=== PATIENT | female | born 1985 | race Caucasian/White ===

== ENCOUNTER 2021-07-23 09:08 | Outpatient (REF) | payer OTHER, SELFPAY ==
[2021-07-23 11:23] LABS: Imm Gran Abs Auto 0.02 X10*3/uL (0.00-0.03); Imm Gran Pct Auto 0.4 % (0.0-0.4); Mean Corpuscular Volume 84.5 fL (80.0-98.0); PLT CLUMP 1; Red Blood Count 4.38 X10*6/uL (4.20-5.50); Red Cell Distribution Width 12.7 % (11.0-16.0); SCAN SMEAR FLAG 1
[2021-07-23 11:25] LABS: Basophils Percent Auto 0.6 % (0-2); Eosinophils Absolute Auto 0.2 X10*3/uL (0.0-0.4); Eosinophils Percent Auto 3.4 % (0-4); Hemoglobin 12.4 g/dl (12.0-16.0); Lymphocytes Absolute Auto 1.2 X10*3/uL (1.2-4.9); Lymphocytes Percent Auto 23.3 % (20-40); Mean Corpuscular HGB Conc 33.5 g/dl (31.0-35.0); Mean Corpuscular Hemoglobin 28.3 pg (27.0-33.0); Monocytes Absolute Auto 0.4 X10*3/uL (0.1-1.2); Monocytes Percent Auto 7.7 % (2-11); Neutrophils Absolute Auto 3.3 x10*3/uL (2.0-8.3); Neutrophils Percent Auto 64.6 % (45-73)
[2021-07-23 11:26] LABS: MANUAL DIFF FLAG NO; Platelet Count 134 X10*3/uL (160-400); White Blood Count 5.1 X10*3/uL (4.8-10.8)
[2021-07-23 11:48] LABS: Alanine Aminotransferase 23 U/L (0-31); Alkaline Phosphatase 81 U/L (39-117); Anion Gap 12 (12-20); Aspartate Amino Transferase 19 U/L (5-31); Bilirubin Total 0.9 mg/dL (0.0-1.0); Blood Urea Nitrogen 16 mg/dL (9-16); Calcium 8.8 mg/dL (8.4-10.2); Carbon Dioxide 25 mmol/L (22-29); Chloride 106 mmol/L (96-108); Cholesterol 150 mg/dL; Estimated Glomerular Filt Rate > 60; Glucose Fasting 94 mg/dL (60-99); HDL Cholesterol 35 mg/dL; LDL Cholesterol Calculated 95 mg/dl; Potassium 4.2 mmol/L (3.3-5.1); Sodium 139 mmol/L (135-145); Total Protein 6.8 g/dL (6.5-8.0); Triglycerides 101 mg/dL
[2021-07-23 11:54] LABS: TSH reflex Free T4 1.71 uIU/mL (0.32-4.0)
[2021-07-23 11:56] LABS: HBS Num1 14.23 mIU/mL (0-7.99); HBc Num1 0.07 S/CO (0.00-0.79); HBsAGNum1 0.29 S/CO (0.00-0.99); HIV AB/AG Nonreactive (Nonreactive); HIV Num 1 0.08 S/CO (0.00-0.99); Hepatitis B Core Antibody Nonreactive (Nonreactive); Hepatitis B Surface Antigen Negative (Negative); ~HepC Num1 0.09 S/CO (0.00-0.79); ~Hepatitis B Surface Antibody REACTIVE (Nonreactive); ~Hepatitis C Antibody Nonreactive (Nonreactive)
[2021-07-23 12:11] LABS: Creatinine Urine 126.98 mg/dL; Microalbum/Creatinine Ratio Ur 14.9 ug/mg cr
[2021-07-24 07:47] LABS: Syphilis Screen Nonreactive (Nonreactive)
== END 2021-07-23 09:09 | disposition home or self-care (01) ==
LOC: HO.WFDLDS 09:08
PROVIDERS: Visit Provider Family Medicine
DX: Z00.00 Encounter for general adult medical examination without abnormal findings (principal); Z11.4 Encounter for screening for human immunodeficiency virus [HIV]; Z11.3 Encounter for screening for infections with a predominantly sexual mode of transmission; Z87.59 Personal history of other complications of pregnancy, childbirth and the puerperium
CPT/HCPCS: 36415; 80053; 80061; 82043; 84443; 85025; 86704; 86706; 86780; 86803; 87340; 87389

== ENCOUNTER 2022-11-29 16:03 | Outpatient (AMB) | payer OTHER, SELFPAY ==
--- NOTE | 2022-11-29 16:07 | A.OFFPC_ITS ---
Vital Signs 11/29/22 16:08 Height 5 ft 3 in Weight 218 lb 4 oz BMI 38.7 BP 118/64 Blood Pressure Location Lt brachial Position Sitting Pulse 74 Pulse Source Pulse Oximeter Pulse Oximetry (%) 99 Oxygen Delivery Method Room Air Intake Visit Reasons: Physical Exam Intake Note: Patient is here for her physical today. Allergies No Known Allergies Allergy (Verified 11/29/22 16:10) Tobacco use date assessed: 11/29/22 HPI Physical Exam HPI Details Patient?presents?for?complete?physical?exam. No?recent?labs. No?new?complaints.??Patient?feels?well.??Working?on?a?healthy?diet ?and?gets?exercise?rowing?and?lifting?weights. 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 Leonard Vazquez, Aaliyah Lopez, Stefan aquino nd colleagues, with an educational cori from [employer]. Review of Systems Const Denies chills, Denies fatigue, Denies fever(s), Denies headache(s) and Denies weakness Eyes Denies change in vision ENT Denies dizziness, Denies headache(s), Denies hearing loss, Denies nasal congestion, Denies sinus pain, Denies sinus pressure and Denies sore throat Card Denies chest pain, Denies lightheadedness, Denies dyspnea and Denies other (palpitations) Resp Denies cough, Denies dyspnea and Denies wheezing GI Denies abdominal pain, Denies melena, Denies hematochezia, Denies change in bowel habits, Denies dyspepsia and Denies nausea Denies hematuria and Denies dysuria Musc Denies abnormal gait, Denies myalgias, Denies arthralgias, Denies numbness and Denies tingling Skin/Breast Denies rash, Denies unusual bruising and Denies wounds Neuro Denies abnormal gait, Denies dizziness, Denies headache(s), Denies memory loss, Denies numbness, Denies Sensory deficit (Neuro), Denies tingling and Denies weakness Psych Denies anxiety, Denies depression and Denies memory loss Endo Denies cold intolerance, Denies fatigue, Denies heat intolerance, Denies polydipsia and Denies polyuria [place]/Lymph Denies easy bleeding and Denies easy bruising Aller/Immun Denies wheezing Physical exam (Primary Care) Vital Signs: Last Vital Signs Pulse 74 11/29/22 16:08 BP 118/64 11/29/22 16:08 Pulse Ox 99 11/29/22 16:08 Oxygen Delivery Method Room Air 11/29/22 16:08 BMI result Body Mass Index 38.7 Tobacco/Smoking Status: Tobacco use Status Tobacco use date assessed 11/29/22 11/29/22 16:15 Patient Tobacco Use Status Never used Tobacco 11/29/22 16:15 e-Cigarette/Vaping Use Never Used 11/29/22 16:15 Const General: no acute distress, well developed, alert and awake Nutritional Appearance: well nourished Orientation/consciousness: patient oriented x3 HENMT Head: Yes normocephalic and Yes atraumatic Ears: hearing grossly normal bilaterally and TM's normal bilaterally General nose exam: Normal external nose present and Normal nares present Mouth: Normal oral and palatal mucosa present and moist mucous membranes Teeth and gingiva: dentition normal Throat: Yes posterior oropharynx normal Eyes Pupils: Equal, round and reactive pupils present and Pupil accommodation reflex normal EOM: EOMs intact bilaterally Neck Neck: Yes normal visual inspection, Yes no lymphadenopathy and Yes trachea midline Thyroid: Thyroid normal Carotids: no bruits Lymphatic: no lymphadenopathy noted Chest Chest palpation & inspection: normal inspection of the chest Resp Effort & Inspection: normal respiratory effort Auscultation: clear to auscultation bilaterally Cardio Rate: regular rate Rhythm: regular rhythm Heart sounds: S1 normal heart sound present, S2 normal heart sound present, no gallops, no murmurs and no rubs Bruits: no abdominal aortic bruits and no carotid bruits GI Palpation (GI): No Abdominal aortic bruit present, Soft to palpation, nontender, No hepatosplenomegaly present and No Rebound tenderness present Auscultation: normal bowel sounds General: Yes no CVA tenderness Back/Spine/Pelvis Back: no CVA tenderness Cervical Spine: cervical ROM normal and No Cervical spine tenderness Thoracic/Lumbar Spine: thoraco-lumbar ROM normal, No pain with thoraco-lumbar ROM, No thoracic spinal tenderness and No lumbar spinal tenderness Skin Lesions: no lesions Rashes: no rashes Trauma: no lacerations or abrasions Wounds: no wounds Nails: normal Neuro General: patient oriented x3, gait normal and CN's II-XI intact bilaterally Cranial nerves: Yes Equal, round and reactive pupils present Cognition (Neuro): normal cognition Gait exam (Neuro): Normal gait present Motor exam (neuro): 5/5 motor strength present throughout Sensory Exam: No Sensory deficit (Neuro) Deep tendon reflexes (DTR's): Right patellar reflex intensity grade: 2+ and Left patellar reflex intensity grade: 2+ Extrem General: Yes normal to inspection and No edema Psych Appearance: grossly normal Affect: normal affect Attitude: cooperative Thought process: Normal thought process present Assessment and Plan Assessment & Plan (1) Adult general medical exam: Code(s): Z.00 - Encounter for general adult medical examination without abnormal findings Plan: 37-year-old?female?presents?for?complete?physical?exam Encouraged?ongoing?healthy?diet?with?active?lifestyle?and?plenty?of?exercise Exam?was ?within?normal?limits?except?elevated?BMI.??Continue?healthy?diet?and?exercise. Orders: Orders Lipid Panel Today Z00.00 - Encounter for general adult medical examination without abnormal findings UA and rflx microscopic Today Z00.00 - Encounter for general adult medical examination without abnormal findings Comprehensive [place]. Panel Fast Today Z00.00 - Encounter for general adult medical examination without abnormal findings Complete Blood Count Auto Diff Today Z00.00 - Encounter for general adult medical examination without abnormal findings Microalbumin, Random (w Creat) Today I10 - Essential (primary) hypertension TSH reflex Free T4 Today Z00.00 - Encounter for general adult medical examination without abnormal findings Coding Level of Care Code New Pt Prev Care 18-39yr(32573 Diagnoses Adult general medical exam Z00.00
[2022-11-29 16:08] VITALS: BP 118/64; PULSE 74; O2SAT 99; BMI 38.7
== END 2022-11-29 17:11 | disposition home or self-care (01) ==
PROVIDERS: PCP Family Medicine; Visit Provider Family Medicine
DX: Z00.00 Encounter for general adult medical examination without abnormal findings (principal)
CPT/HCPCS: 99385

== ENCOUNTER 2022-12-09 07:15 | Outpatient (REF) | payer OTHER, SELFPAY ==
[2022-12-09 11:39] LABS: MANUAL DIFF FLAG NO
[2022-12-09 11:50] LABS: Basophils Percent Auto 0.6 % (0-2); Eosinophils Absolute Auto 0.1 X10*3/uL (0.0-0.4); Eosinophils Percent Auto 2.2 % (0-4); Hematocrit 38.1 % (37.0-47.0); Hemoglobin 13.2 g/dl (12.0-16.0); Imm Gran Abs Auto 0.01 X10*3/uL (0.00-0.03); Imm Gran Pct Auto 0.2 % (0.0-0.4); Lymphocytes Absolute Auto 1.2 X10*3/uL (1.2-4.9); Lymphocytes Percent Auto 26.7 % (20-40); Mean Corpuscular HGB Conc 34.6 g/dl (31.0-35.0); Mean Corpuscular Hemoglobin 29.1 pg (27.0-33.0); Mean Corpuscular Volume 84.1 fL (80.0-98.0); Monocytes Absolute Auto 0.4 X10*3/uL (0.1-1.2); Monocytes Percent Auto 7.5 % (2-11); Neutrophils Absolute Auto 2.9 x10*3/uL (2.0-8.3); Neutrophils Percent Auto 62.8 % (45-73); Platelet Count 137 X10*3/uL (160-400); Red Blood Count 4.53 X10*6/uL (4.20-5.50); White Blood Count 4.6 X10*3/uL (4.8-10.8)
[2022-12-09 11:51] LABS: Appearance Urine Cloudy; Color Urine Yellow; Glucose Urine UA Negative (Negative); Leukocyte Esterase Urine Negative (Negative); Nitrite Urine Negative (Negative); Urine Blood Negative (Negative); Urine Ketones Negative (Negative); Urine Protein Negative (Neg-Trace)
[2022-12-09 12:03] LABS: Estimated Average Glucose 97 mg/dL
[2022-12-09 12:14] LABS: Alanine Aminotransferase 22 U/L (0-31); Alkaline Phosphatase 58 U/L (39-117); Anion Gap 12 (12-20); Aspartate Amino Transferase 22 U/L (5-31); Bilirubin Total 0.6 mg/dL (0.0-1.0); Blood Urea Nitrogen 15 mg/dL (9-16); Calcium 8.9 mg/dL (8.4-10.2); Carbon Dioxide 24 mmol/L (22-29); Chloride 105 mmol/L (96-108); Cholesterol 159 mg/dL (<200); Estimated Glomerular Filt Rate > 60; Glucose Fasting 110 mg/dL (60-99); HDL Cholesterol 39 mg/dL (>40); LDL Cholesterol Calculated 90 mg/dL (<100); Potassium 4.1 mmol/L (3.3-5.1); Sodium 137 mmol/L (135-145); Total Protein 6.6 g/dL (6.5-8.0); Triglycerides 153 mg/dL (<150)
[2022-12-09 12:34] LABS: TSH reflex Free T4 1.69 uIU/mL (0.32-4.0); Vitamin D 25-OH Total 39.7 ng/mL (>30)
[2022-12-09 13:21] LABS: Creatinine Urine 183.45 mg/dL; Microalbum/Creatinine Ratio Ur 19.6 ug/mg cr (<30)
== END 2022-12-09 07:16 | disposition home or self-care (01) ==
LOC: HO.WFDLDS 07:15
PROVIDERS: Visit Provider Family Medicine
DX: Z00.00 Encounter for general adult medical examination without abnormal findings (principal); E55.9 Vitamin D deficiency, unspecified; I10 Essential (primary) hypertension; R73.01 Impaired fasting glucose; Z86.32 Personal history of gestational diabetes
CPT/HCPCS: 36415; 80053; 80061; 81003; 82043; 82306; 82570; 83036; 84443; 85025

== ENCOUNTER 2022-12-23 15:16 | Outpatient (AMB) | payer OTHER, SELFPAY ==
--- NOTE | 2022-12-23 15:12 | A.OFFPC_ITS ---
Intake Visit Reasons: Follow-up?CPE-labs Intake Note: Patient is calling to follow up on CPE, labs today. Allergies No Known Allergies Allergy (Verified 11/29/22 16:10) Tobacco use date assessed: 12/23/22 HPI Follow-up?CPE-labs HPI Details 37 y/o female presents to f/u CPE-labs v ia telemedicine. Labs were drawn 12/09/22. Reviewed labs with pt. Plt count low at 137 x10*3/uL. Has been low before. Elevated fasting glucose of 110 and A1c 5.0%. Triglycerides 153. TC 159. LDL 90. HDL low at 39. 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 Leonard Vazquez, Aaliyah Lopez, Stefan Hernandez and colleagues, with an educational cori from [employer]. Review of Systems Const Denies chills, Denies fatigue, Denies fever(s), Denies headache(s) and Denies weakness ENT Denies dizziness and Denies headache(s) Card Denies dyspnea Resp Denies cough, Denies dyspnea, Denies wheezing and Denies other (shortness of breath) Musc Denies numbness and Denies tingling Neuro Denies dizziness, Denies headache(s), Denies numbness, Denies tingling and Denies weakness Psych Denies anxiety and Denies depression Endo Denies fatigue Aller/Immun Denies wheezing Physical exam (Primary Care) Tobacco/Smoking Status: Tobacco use Status Tobacco use date assessed 12/23/22 12/23/22 15:15 Patient Tobacco Use Status Never used Tobacco 12/23/22 15:15 e-Cigarette/Vaping Use Never Used 12/23/22 15:15 Telehealth Telehealth Location of provider rendering services: practice address Location of patient: address on file Patient Identification confirmed using: Name, : Yes Telehealth method: voice only Patient verbally consented to treatment: Yes Patient verbally consented to billing insurance company: Yes Patient informed of any privacy concerns related to visit: Yes Minutes spent on Phone/Video with Pt.: 7 Assessment and Plan Assessment & Plan (1) Thrombocytopenia: Code(s): D69.6 - Thrombocytopenia, unspecified Plan: Mild?stable?thrombocytopenia Will?follow?again?at?her?next?blood?draw (2) Low HDL (under 40): Code(s): E78.6 - Lipoprotein deficiency Plan: Improving?with?exercise Continue?to?work?at?exercise (3) Elevated fasting glucose: Code(s): R73.01 - Impaired fasting glucose Plan: Elevated?fasting?blood?sugar?though?her?A1c?is?within?normal?range Continue?to?work?at?a?diet?low?in?sugars?and?starches Continue?exercise (4) Screening for cervical cancer: Code(s): Z12.4 - Encounter for screening for malignant neoplasm of cervix Plan: Patient?says?she?has?an?appointment?with?her?OBGYN?next?week. Orders: Orders Complete Blood Count Auto Diff Today D69.6 - Thrombocytopenia, unspecified, Z00.00 - Encounter for general adult medical examination without abnormal findings Lipid Panel Today E78.6 - Lipoprotein deficiency, Z00.00 - Encounter for general adult medical examination without abnormal findings Hemoglobin A1c Today R73.01 - Impaired fasting glucose Comprehensive [place]. Panel Fast Today R73.01 - Impaired fasting glucose, Z00.00 - Encounter for general adult medical examination without abnormal findings Coding Level of Care Code Tele Est Pt Level 2 (12360) Diagnoses Thrombocytopenia D69.6 Low HDL (under 40) E78.6 Elevated fasting glucose R73.01 Screening for cervical cancer Z12.4
== END 2022-12-23 17:00 | disposition home or self-care (01) ==
LOC: HO.HMGFM 15:16
PROVIDERS: PCP Family Medicine; Visit Provider Family Medicine
DX: D69.6 Thrombocytopenia, unspecified (principal); E78.6 Lipoprotein deficiency; R73.01 Impaired fasting glucose
CPT/HCPCS: 99441

== ENCOUNTER 2023-07-08 09:01 | Outpatient (AMB) | payer OTHER, SELFPAY ==
--- NOTE | 2023-07-08 09:07 | A.OFFPC_ITS ---
Vital Signs 07/08/23 09:18 07/08/23 09:20 Height 5 ft 3 in Weight 227 lb 6 oz BMI 40.3 BP 146/86 H 138/88 Blood Pressure Location Rt brachial Rt brachial Position Sitting Sitting Respiration 16 Pulse 63 Pulse Source Pulse Oximeter Temp 98.5 F Temp Source Oral Pulse Oximetry (%) 99 Oxygen Delivery Method Room Air Oxygen Flow Rate 99 Intake Visit Reasons: Throat Pain Intake Note: Throat pain, face tingling, head pressure. Worried its related to high blood pressure. Son diagnosed yesterday with strep. Allergies No Known Allergies Allergy (Verified 07/08/23 09:14) Medication List - Last Reconciled 07/08/23 by Nanda Rayo MD cholecalciferol (vitamin D3) 50 mcg PO DAILY prednisone 40 mg (2 x 20 mg) PO DAILY 5 days Tobacco use date assessed: 12/23/22 Dental Screening Dental Screen Date: 07/08/23 Did you have a dental visit in the last 12 months?: Yes Did you have a dental problem in the last 6 months where you did not have access to dental care?: No Was dental information given to patient?: Patient has dentist HPI HPI Comments History of Present Illness Details 37 year old female with a past medical h istory of preeclampsia, impaired glucose, dyslipidemia presenting for sore throat Reports sore throat yesterday but resolution today. Son has strep. Rapid strep negative. Has had months of bilateral facial tingling from below eyes to upper neck. some upper neck discomfort mostly anteriorly. No significant sinus pressure. Denies ear pain. Denies LN. 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 1. Little interest or pleasure in doing things: not at all 2. Feeling down, depressed, or hopeless: not at all 3. Trouble falling or staying asleep, or sleeping too much: not at all 4. Feeling tired or having little energy: several days 5. Poor appetite or overeating: more than half the days 6. Feeling bad about yourself - or that you are a failure or have let yourself or your family down: not at all 7. Trouble concentrating on things, such as reading the newspaper or watching television: several days 8. Moving or speaking so slowly that other people could have noticed. Or the opposite - being so fidgety or restless that you have been moving around a lot more than usual: not at all 9. Thoughts that you would be better off or of hurting yourself in some way: not at all Total score: 4 Depression Screening Interpretation: Positive Depression Screening Follow-up: Declines treatment Depression Screening Done: Yes 22430 - PHQ-9 Billing: Yes Source: Developed by Drs. Leonard Vazquez, Aaliyha Lopez, Stefan Hernandez and colleagues, with an educational cori from [employer]. Thrive Questionnaire Date Thrive assessed: 07/08/23 I am a: Patient What is your living situation today?: I have a steady place to live Within the past 12 months, did the food you bought not last and you didn't have the money to get more?: Never true Within the past 12 months, did you worry whether your food would run out before you got money to buy more?: Never true Do you have trouble paying for medicines?: No Do you have trouble getting transportation to medical appointments?: No Do you have trouble paying your heating and electricity bill?: No Do you have trouble taking care of your child, family member or friend?: No Do you have trouble with day-to-day activities such as bathing, preparing meals, shopping, managing finances, etc.?: No Are you currently unemployed and looking for a job?: No Are you interested in more education?: No Please select the resources that you would like help with: None Currently or been in a relationship where the following occur: no concerns repo rted THRIVE Score: 0 AUDIT C Alcohol Use Questionnaire (AUDIT-C) 1. How often do you have a drink containing alcohol?: Monthly or less 2. How many drinks containing alcohol do you have on a typical day when you are drinking?: 1 or 2 3. How often do you have six or more drinks on one occasion?: Never Total Score: 1 SHAYNE-7 AMB Questionnaire SHAYNE-7 Date SHAYNE - 7 assessed: 07/08/23 Feeling nervous, anxious, or on edge: 1 = Several days Not being able to stop or control worryin = Not at all Worrying too much about different things: 1 = Several days Trouble relaxin = Not at all Being so restless that it is hard to sit still: 0 = Not at all Becoming easily annoyed or irritable: 0 = Not at all Feeling afraid as if something awful might happen: 0 = Not at all Total SHAYNE-7 score (0-4 normal; 5-9 mild; 10-14 moderate; 15-21 severe): 2 Source: Developed by Drs. Leonard Vazquez, Aaliyah Lopez, Stefan Hernandez and colleagues, with an educational cori from [employer]. SHAYNE-7 Assessment Billing SHAYNE-7 Assessment Tool: SHAYNE-7 Assessment [id number] Review of Systems Const Details: see HPI Physical exam (Primary Care) Vital Signs: Last Vital Signs Temp 98.5 F 07/08/23 09:18 Pulse 63 07/08/23 09:18 Resp 16 07/08/23 09:18 BP 138/88 07/08/23 09:20 Pulse Ox 99 07/08/23 09:18 Oxygen Delivery Method Room Air 07/08/23 09:18 Oxygen Flow Rate 99 07/08/23 09:18 PHYSICAL EXAM: GENERAL: Alert and oriented x 3. NAD EYES: EOMI. Anicteric. HENT: Moist mucous membranes. No scleral icterus. No cervical lymphadenopathy. LUNGS: Clear to auscultation bilaterally. CARDIOVASCULAR: Regular rate and rhythm. No murmur. . ABDOMEN: Soft, non-tender +bs EXTREMITIES: No edema. Non-tender. SKIN: No rashes or lesions. Warm. NEUROLOGIC: No focal neurological deficits. PSYCHIATRIC: Cooperative. Appropriate mood and affect BMI result Body Mass Index 40.3 Tobacco/Smoking Status: Tobacco use Status Tobacco use date assessed 12/23/22 07/08/23 09:08 Patient Tobacco Use Status Never used Tobacco 07/08/23 09:16 e-Cigarette/Vaping Use Never Used 07/08/23 09:16 Depression Screening Interpretation: Positive Depression Screening Follow-up: Declines treatment Currently or been in a relationship where the following occur: no concerns reported Results AMB Rapid Strep AMB Rapid Strep Negative Last Edit by Felisha Yadav CMA on 07/08/23 09:3 1 Results Reviewed Results Reviewed: Laboratory Last Values Strep Scn [facility] Negative 07/08/23 09:29 Assessment and Plan Assessment & Plan (1) Throat pain: Code(s): R07.0 - Pain in throat Plan: resolved (2) Cervical neuralgia: Comment: xray and labs ordered Prednisone x 5 days sent Monitor home BP. decrease salt intake. efforts toward weight loss Code(s): M54.12 - Radiculopathy, cervical region (3) Facial numbness: Code(s): R20.0 - Anesthesia of skin Orders: Orders AMB Rapid Strep Screen Today R07.0 - Pain in throat XR cervical spine 2V Today M54.12 - Radiculopathy, cervical region, R20.0 - Anesthesia of skin Lyme IgG/IgM w/reflex to WB Today M54.12 - Radiculopathy, cervical region, R20.0 - Anesthesia of skin Vitamin B12 Today M54.12 - Radiculopathy, cervical region, R20.0 - Anesthesia of skin Hemoglobin A1c Today M54.12 - Radiculopathy, cervical region, R20.0 - Anesthesia of skin Medications: New prednisone 40 mg (2 x 20 mg) PO DAILY 5 days 10 tabs 0RF Coding Level of Care Code Est Pt Level 4 (68720) Complex EM visit Add On G2211 Diagnoses Throat pain R07.0 Cervical neuralgia M54.12 Facial numbness R20.0 Additional Codes SHAYNE-7 Assessment Billing - SHAYNE-7 Assessment Tool: SHAYNE-7 Assessment 24364 ([id number])
[2023-07-08 09:18] VITALS: BP 146/86; PULSE 63; RESP 16; TEMP 36.9; O2SAT 99; BMI 40.3
[2023-07-08 09:20] VITALS: BP 138/88
== END 2023-07-08 10:22 | disposition home or self-care (01) ==
PROVIDERS: PCP Family Medicine; Visit Provider Internal Medicine
DX: R07.0 Pain in throat (principal); M54.12 Radiculopathy, cervical region; R20.0 Anesthesia of skin
CPT/HCPCS: 87880; 99214; G2211

== ENCOUNTER 2023-07-08 10:09 | Outpatient (REF) | payer OTHER, SELFPAY ==
[2023-07-08 11:50] LABS: Estimated Average Glucose 105 mg/dL; Hemoglobin A1C 118.2258 umol/L; Hemoglobin A1c % 5.3 % (<6.0)
[2023-07-08 12:48] LABS: Vitamin B12 521 pg/mL (200-900)
[2023-07-13 11:23] LABS: Lyme Abs Screen <0.90 index
== END 2023-07-08 10:10 | disposition home or self-care (01) ==
LOC: HO.WFDLDS 10:09
PROVIDERS: Visit Provider Internal Medicine
DX: R20.0 Anesthesia of skin (principal); M54.12 Radiculopathy, cervical region
CPT/HCPCS: 36415; 82607; 83036; 86617; 86618

== ENCOUNTER 2024-09-13 10:49 | Outpatient (AMB) | payer OTHER, SELFPAY ==
--- NOTE | 2024-09-13 10:55 | MHC.PC.OV ---
Vital Signs 09/13/24 10:57 09/13/24 11:01 Height 5 ft 3 in Weight 218 lb 8 oz BMI 38.7 BP 160/100 H 160/90 H Blood Pressure Location Lt brachial Lt brachial Position Sitting Sitting Respiration 16 Pulse 91 Pulse Source Pulse Oximeter Temp 98.6 F Temp Source Oral Pulse Oximetry (%) 98 Oxygen Delivery Method Room Air Intake Visit Reasons: Anxiety Intake Note: patient is scheduled for mental health follow up Process Control Specialist Required: No Allergies No Known Allergies Allergy (Verified 09/13/24 10:56) Tobacco use date assessed: 12/23/22 Dental Screening Dental Screen Date: 07/08/23 HPI Anxiety HPI Details 39 y/o female presents today with complaints of anxiety. Pt reports hx of depression when younger. She notes has been depressed which she feels has been affecting her. Pt notes she has been going to therapy for about a year. Denies any SI/HI. Reports FHx of bipolar disorder. PHQ-9 15, SHAYNE-7 21 today. Gets regular exercise 5 days a week. 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 1. Little interest or pleasure in doing things: more than half the days 2. Feeling down, depressed, or hopeless: more than half the days 3. Trouble falling or staying asleep, or sleeping too much: more than half the days 4. Feeling tired or having little energy: more than half the days 5. Poor appetite or overeating: several days 6. Feeling bad about yourself - or that you are a failure or have let yourself or your family down: nearly every day 7. Trouble concentrating on things, such as reading the newspaper or watching television: nearly every day 8. Moving or speaking so slowly that other people could have noticed. Or the opposite - being so fidgety or restless that you have been moving around a lot more than usual: not at all 9. Thoughts that you would be better off or of hurting yourself in some way: not at all Total score: 15 Depression Screening Interpretation: Positive Depression Screening Done: Yes 55986 - PHQ-9 Billing: Yes Source: Developed by Drs. Leonard Vazquez, Aaliyah Lopez, Stefan Hernandez and colleagues, with an educational cori from [employer]. Thrive Questionnaire Date Thrive assessed: 07/08/23 I am a: Patient What is your living situation today?: I have a steady place to live Within the past 12 months, did the food you bought not last and you didn't have the money to get more?: Never true Within the past 12 months, did you worry whether your food would run out before you got money to buy more?: Never true Do you have trouble paying for medicines?: No Do you have trouble getting transportation to medical appointments?: No Do you have trouble paying your heating and electricity bill?: No Do you have trouble taking care of your child, family member or friend?: No Do you have trouble with day-to-day activities such as bathing, preparing meals, shopping, managing finances, etc.?: No Are you currently unemployed and looking for a job?: No Are you interested in more education?: No Please select the resources that you would like help with: None Currently or been in a relationship where the following occur: No concerns reported THRIVE Score: 0 AUDIT C Alcohol Use Questionnaire (AUDIT-C) 1. How often do you have a drink containing alcohol?: Monthly or less 2. How many drinks containing alcohol do you have on a typical day when you are drinking?: 1 or 2 3. How often do you have six or more drinks on one occasion?: Never Total Score: 1 SHAYNE-7 AMB Questionnaire SHAYNE-7 Date SHAYNE - 7 assessed: 09/13/24 Feeling nervous, anxious, or on edge: 3 = Nearly every day Not being able to stop or control worryin = Nearly every day Worrying too much about different things: 3 = Nearly every day Trouble relaxin = Nearly every day Being so restless that it is hard to sit still: 3 = Nearly every day Becoming easily annoyed or irritable: 3 = Nearly every day Feeling afraid as if something awful might happen: 3 = Nearly every day Total SHAYNE-7 score (0-4 normal; 5-9 mild; 10-14 moderate; 15-21 severe): 21 Source: Developed by Drs. Leonard Vazquez, Aaliyah Lopez, Stefan Hernandez and colleagues, with an educational cori from [employer]. SHAYNE-7 Assessment Billing SHAYNE-7 Assessment Tool: SHAYNE-7 Assessment 99362 Review of Systems Const Denies chills, Denies fatigue, Denies fever(s), Denies headache(s) and Denies weakness ENT Denies dizziness and Denies headache(s) Card Denies dyspnea Resp Denies cough, Denies dyspnea, Denies wheezing and Denies other (shortness of breath) Musc Denies numbness and Denies tingling Neuro Denies dizziness, Denies headache(s), Denies numbness, Denies tingling and Denies weakness Psych Reports anxiety and Reports depression Endo Denies fatigue Aller/Immun Denies wheezing Physical exam (Primary Care) Vital Signs: Last Vital Signs Temp 98.6 F 09/13/24 10:57 Pulse 91 09/13/24 10:57 Resp 16 09/13/24 10:57 BP 160/90 H 09/13/24 11:01 Pulse Ox 98 09/13/24 10:57 Oxygen Delivery Method Room Air 09/13/24 10:57 BMI result Body Mass Index 38.7 Tobacco/Smoking Status: Tobacco use Status Tobacco use date assessed 12/23/22 09/13/24 10:57 Patient Tobacco Use Status Never used Tobacco 09/13/24 10:57 e-Cigarette/Vaping Use Never Used 09/13/24 10:57 PHQ-9: PHQ-9 Score PHQ-9: Total score 15 09/13/24 11:09 Depression Screening Interpretation: Positive Thrive Assessment: Date of Thrive Assessment Date Thrive assessed 07/08/23 09/13/24 10:57 Currently or been in a relationship where the following occur: No concerns reported Const General: well developed; No acute distress Nutritional Appearance: well nourished Orientation/consciousness: patient oriented x3 HENMT Head: Yes normocephalic and Yes atraumatic Eyes General: appearance normal, both eyes and all related structures Pupils: Equal, round and reactive pupils present EOM: EOMs intact bilaterally Resp Effort & Inspection: normal respiratory effort Auscultation: clear to auscultation bilaterally Cardio Rate: regular rate Rhythm: regular rhythm Heart sounds: S1 normal heart sound present, S2 normal heart sound present, no gallops, no murmurs and no rubs Neuro General: patient oriented x3 and gait normal Cranial nerves: Yes Equal, round and reactive pupils present Psych Affect: normal affect Coding Level of Care Code Est Pt Level 4 (75638) Diagnoses Anxiety with depression F41.8 Family history of bipolar disorder Z81.8 Elevated blood pressure reading without diagnosis of hypertension R03.0 Low HDL (under 40) E78.6 Additional Codes SHAYNE-7 Assessment Billing - SHAYNE-7 Assessment Tool: SHAYNE-7 Assessment 01521 ([id number]) PHQ-9 - 02234 - PHQ-9 Billing: Yes ([id number]) Assessment & Plan Assessment & Plan (1) Anxiety with depression: Code(s): F41.8 - Other specified anxiety disorders Category: Medical Plan: Patient presents with significant depression as well as anxiety She has never tried medication She does have therapist and encouraged her to continue with them. She notes a family history of bipolar disorder (father). Will try bupropion Continue with therapist and continue exercise Will give her 3 weeks off and follow-up just prior to return date May need [facility] paperwork. (2) Family history of bipolar disorder: Code(s): Z81.8 - Family history of other mental and behavioral disorders Category: Medical Plan: As above (3) Elevated blood pressure reading without diagnosis of hypertension: Code(s): R03.0 - Elevated blood-pressure reading, without diagnosis of hypertension Category: Medical Plan: Blood pressure is at prior visits with the were okay patient is rather stress today Seeing her back in a few weeks and will readdress if still elevated. (4) Low HDL (under 40): Code(s): E78.6 - Lipoprotein deficiency Category: Medical Plan: History of low HDL. Reviewed labs She will get these drawn prior to next visit and can discuss as well Orders: Orders Comprehensive [place]. Panel Fast Today Z00.00 - Encounter for general adult medical examination without abnormal findings Microalbumin, Random (w Creat) Today I10 - Essential (primary) hypertension TSH reflex Free T4 Today Z00.00 - Encounter for general adult medical examination without abnormal findings Hemoglobin A1c Today R73.01 - Impaired fasting glucose Complete Blood Count Auto Diff Today Z00.00 - Encounter for general adult medical examination without abnormal findings Lipid Panel Today Z00.00 - Encounter for general adult medical examination without abnormal findings UA CC w/rflx Micro + Cult Today Z00.00 - Encounter for general adult medical examination without abnormal findings
[2024-09-13 10:57] VITALS: BP 160/100; PULSE 91; RESP 16; TEMP 37; O2SAT 98; BMI 38.7
[2024-09-13 11:01] VITALS: BP 160/90
--- OUTSIDE RECORDS SUMMARY | 2024-09-13 11:31 | XMS_ITS | Clinical Summary ---
[facility] Organization [facility] Address [address] [place] [address] Care Team Providers Care Manager Configuration Name Role Phone Scar Canela MD Primary Care Provider + [phone] Allergies No known active allergies Medications No known medications Social History Tobacco Use Types Packs/Day Years Used Date Smoking Tobacco: Every Day Cigarettes 0.3 8 Smokeless Tobacco: Never Alcohol Use Standard Drinks/Week Comments Yes 0 (1 standard drink = 0.6 oz pur e alcohol) occasionally Sex and Gender Information Value Date Recorded Sex Assigned at Not on file Gender Identity Not on file Sexual Orientation Not on file Last Filed Vital Signs Vital Sign Reading Time Taken Comments Blood Pressure 135/85 09/12/2017 3:26 PM EDT Pulse 83 09/12/2017 3:26 PM EDT Temperature 36.7 C (98.1 F) 09/12/2017 3:26 PM EDT Respiratory Rate - - Oxygen Saturation - - Inhaled Oxygen Concentration - - Weight 86.1 kg (189 lb 12.8 oz) 09/12/2017 3:26 PM EDT Height 160 cm (5' 3 ) 09/12/2017 3:26 PM EDT Body Mass Index 33.62 09/12/2017 3:26 PM EDT Plan of Treatment Health Maintenance Due Date Last Done Comments Hepatitis B Vaccines (1 of 3 - 3-dose series) 1986 Hepatitis C Screening 1986 COVID-19 Vaccine (#1) 01/10/1987 Pneumococcal Vaccine (1 of 2 - PCV) 1992 Depression Screening 1998 Preventative Health Evaluation 2004 DTap / Tdap / Td (1 - Tdap) 2005 Cervical Cancer Screening (P ap Smear) 07/11/2007 Influenza Vaccine (#1) 2024 RSV Ped < 20 months Aged Out No longe r eligible based on patient's age to complete this topic Care Teams Manager Configuration Relationship Specialty Start Date End Date Scar Canela MD [address] [place] [address] PCP - General Internal Medicine 09/02/17
== END 2024-09-13 11:27 | disposition home or self-care (01) ==
LOC: HO.HMCFM 10:49
PROVIDERS: PCP Family Medicine; Visit Provider Family Medicine
DX: F41.8 Other specified anxiety disorders (principal); Z81.8 Family history of other mental and behavioral disorders; R03.0 Elevated blood-pressure reading, without diagnosis of hypertension; E78.6 Lipoprotein deficiency

== ENCOUNTER → 2024-09-13 10:49 | Outpatient (BNVA) | payer OTHER, SELFPAY | PROVIDERS: PCP Family Medicine; Visit Provider Family Medicine | DX: I10 Essential (primary) hypertension (principal); F41.8 Other specified anxiety disorders; F31.9 Bipolar disorder, unspecified; R03.0 Elevated blood-pressure reading, without diagnosis of hypertension; E78.6 Lipoprotein deficiency; Z81.8 Family history of other mental and behavioral disorders | CPT/HCPCS: 96127 ==

== ENCOUNTER 2024-09-19 13:57 | Outpatient (AMB) | payer OTHER, SELFPAY ==
--- NOTE | 2024-09-19 14:12 | MHC.PC.OV ---
Vital Signs 09/19/24 14:17 09/19/24 14:20 Height 5 ft 3 in Weight 219 lb BMI 38.8 BP 140/88 H 140/90 H Blood Pressure Location Lt brachial Lt brachial Position Sitting Sitting Respiration 14 Pulse 85 Pulse Source Pulse Oximeter Temp 98.6 F Temp Source Oral Pulse Oximetry (%) 98 Oxygen Delivery Method Room Air Intake Visit Reasons: FMAL PW Intake Note: patient is scheduled for [facility] paperwork Bias Machine Operator Helper Required: No Allergies No Known Allergies Allergy (Verified 09/19/24 14:16) Tobacco use date assessed: 12/23/22 Dental Screening Dental Screen Date: 07/08/23 HPI FMAL PW HPI Details Patient returns to follow-up anxiety and depression. Patient still has significant symptoms including anxious and depressed mood as well as affects. Avoid behavior difficulty with focus and concentration. Has tolerated bupropion once daily and has brought this up to 75 mg twice a day yesterday. He is not noticing an improvement yet but has only just started b.i.d. dosing. Blood pressure is elevated again. Also has mild palpitations with anxiety. Difficulty with sleep and appetite He has a therapist who has been on vacation but it is coming back and we discussed frequency me about visits. Patient does not feel ready for work due to the above signs and symptoms. 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 [employer] Current occupational exposures/hazards: No Cognitive needs: No Hearing needs: No Vision needs: Yes Questionnaire Thrive Questionnaire Date Thrive assessed: 09/13/24 I am a: Patient What is your living situation today?: I have a steady place to live Within the past 12 months, did the food you bought not last and you didn't have the money to get more?: Never true Within the past 12 months, did you worry whether your food would run out before you got money to buy more?: Never true Do you have trouble paying for medicines?: No Do you have trouble getting transportation to medical appointments?: No Do you have trouble paying your heating and electricity bill?: No Do you have trouble taking care of your child, family member or friend?: No Do you have trouble with day-to-day activities such as bathing, preparing meals, shopping, managing finances, etc.?: No Are you currently unemployed and looking for a job?: No Are you interested in more education?: No Please select the resources that you would like help with: None Currently or been in a relationship where the following occur: No concerns reported THRIVE Score: 0 SHAYNE-7 AMB Questionnaire SHAYNE-7 Date SHAYNE - 7 assessed: 09/13/24 Source: Developed by Drs. Leonard Vazquez, Aaliyah Lopez, Stefan Hernandez and colleagues, with an educational cori from [employer]. Review of Systems Const Details: See HPI Card Details: No chest pain Physical exam (Primary Care) Vital Signs: Last Vital Signs Temp 98.6 F 09/19/24 14:17 Pulse 85 09/19/24 14:17 Resp 14 09/19/24 14:17 BP 140/90 H 09/19/24 14:20 Pulse Ox 98 09/19/24 14:17 Oxygen Delivery Method Room Air 09/19/24 14:17 BMI result Body Mass Index 38.8 Tobacco/Smoking Status: Tobacco use Status Tobacco use date assessed 12/23/22 09/19/24 14:13 Patient Tobacco Use Status Never used Tobacco 09/19/24 14:13 e-Cigarette/Vaping Use Never Used 09/19/24 14:13 Thrive Assessment: Date of Thrive Assessment Date Thrive assessed 09/13/24 09/19/24 14:13 Currently or been in a relationship where the following occur: No concerns reported Const General: no acute distress and well developed Nutritional Appearance: well nourished Orientation/consciousness: patient oriented x3 [facility] Head: Yes normocephalic and Yes atraumatic Eyes General: appearance normal, both eyes and all related structures Pupils: Equal, round and reactive pupils present EOM: EOMs intact bilaterally Resp Effort & Inspection: normal respiratory effort Auscultation: clear to auscultation bilaterally Cardio Rate: regular rate Rhythm: regular rhythm Heart sounds: S1 normal heart sound present, S2 normal heart sound present, no gallops, no murmurs and no rubs Neuro General: patient oriented x3 and gait normal Cranial nerves: Yes Equal, round and reactive pupils present Psych Affect: Anxious affect present (Depressed and anxious affect) Coding Level of Care Code Est Pt Level 4 (28459) Diagnoses Generalized anxiety disorder F41.1 Depression F32.A Hypertension I10 Assessment & Plan Assessment & Plan (1) Generalized anxiety disorder: Code(s): F41.1 - Generalized anxiety disorder Category: Medical (2) Depression: Code(s): F32.A - Depression, unspecified Category: Medical (3) Hypertension: Code(s): I10 - Essential (primary) hypertension Category: Medical Plan Ongoing generalized anxiety disorder and depression. No significant improvement with bupropion yet though she just increased the dose from 75 mg daily to 75 mg b.i.d.. No significant adverse effects. She notes difficulty with appetite and sleep as well as emotional regulation. She notes difficulty with social interactions and completion of chores. She notes difficulty with concentration focus and organization as well as decision making and interactions with coworkers/communication. She also notices mild palpitation Blood pressure is also elevated and this may be partly due to anxiety. Will extend [place] leave for 10 weeks. Continue bupropion Adding metoprolol for palpitations, anxiety hypertension. Continue with therapist and recommended weekly or biweekly visits for now Encouraged exercise 3 times weekly as tolerated. Will follow-up in 1 month to adjust medications as needed. She will call for any problems with her medications Will follow-up in 8-10 weeks, prior to anticipated return to work date to reassess readiness for work. [facility] paperwork is filled out Starting metoprolol for hypertension. Risks/benefits discussed Will recheck blood pressure at next visit.
[2024-09-19 14:17] VITALS: BP 140/88; PULSE 85; RESP 14; TEMP 37; O2SAT 98; BMI 38.8
[2024-09-19 14:20] VITALS: BP 140/90
--- OUTSIDE RECORDS SUMMARY | 2024-09-19 14:41 | XMS_ITS | Clinical Summary ---
Author Organization [facility] Address [address] [place] [address] Care Team Providers Care Laser Technician Name Role Phone Scar Canela MD Primary Care Provider + [phone] Allergies No known active allergies Medications No [...] age to complete this topic Care Teams Laser Technician Relationship Specialty Start Date End Date Scar Canela MD [address] [place] [address] PCP - General Internal Medicine 09/02/17
== END 2024-09-19 15:12 | disposition home or self-care (01) ==
LOC: HO.HMCFM 13:58
PROVIDERS: PCP Family Medicine; Visit Provider Family Medicine
DX: F41.1 Generalized anxiety disorder (principal); F32.A Depression, unspecified; I10 Essential (primary) hypertension

== ENCOUNTER 2024-10-30 08:09 | Outpatient (REF) | payer OTHER, SELFPAY ==
--- OUTSIDE RECORDS SUMMARY | 2024-10-30 08:38 | XMS_ITS | Clinical Summary ---
Author Organization [facility] Address [address] [place] [address] Care Team Providers Care Behavioral Health Director Name Role Phone Scar Canela MD Primary Care Provider + [phone] Allergies No known active allergies Medications No [...] age to complete this topic Care Teams Behavioral Health Director Relationship Specialty Start Date End Date Scar Canela MD [address] [place] [address] PCP - General Internal Medicine 09/02/17
[2024-10-30 11:07] LABS: MANUAL DIFF FLAG NO
[2024-10-30 11:13] LABS: Hematocrit 38.6 % (37.0-47.0); Hemoglobin 13.3 g/dl (12.0-16.0); Imm Gran Abs Auto 0.02 X10*3/uL (0.00-0.03); Imm Gran Pct Auto 0.4 % (0.0-0.4); Lymphocytes Absolute Auto 1.1 X10*3/uL (1.2-4.9); Mean Corpuscular HGB Conc 34.5 g/dl (31.0-35.0); Mean Corpuscular Hemoglobin 29.8 pg (27.0-33.0); Mean Corpuscular Volume 86.5 fL (80.0-98.0); NRBC Abs Auto 0.000 X10*3/uL (0.0-0.012); NRBC Pct Auto 0.0 /100WBC (0.0-0.2); Platelet Count 135 X10*3/uL (160-400); Red Blood Count 4.46 X10*6/uL (4.20-5.50); White Blood Count 5.0 X10*3/uL (4.8-10.8)
[2024-10-30 11:22] LABS: Appearance Urine Clear; Glucose Urine UA Negative (Negative); PH 6.5 (5.0-9.0); Specific Gravity - Urine 1.015 (1.005-1.025)
[2024-10-30 11:26] LABS: Hemoglobin A1C 115.7425 umol/L; Total Hemoglobin (HGBA1C) 3489.6124 umol/L
[2024-10-30 12:22] LABS: Microalbum/Creatinine Ratio Ur 20.3 ug/mg cr (<30)
[2024-10-30 12:35] LABS: Alanine Aminotransferase 26 U/L (0-31); Albumin Level 4.3 g/dL (3.5-5.0); Alkaline Phosphatase 65 U/L (39-117); Anion Gap 12 (12-20); Aspartate Amino Transferase 27 U/L (5-31); Blood Urea Nitrogen 15 mg/dL (9-16); Calcium 8.4 mg/dL (8.4-10.2); Carbon Dioxide 23 mmol/L (22-29); Chloride 108 mmol/L (96-108); Cholesterol 147 mg/dL (<200); Estimated Glomerular Filt Rate > 60; HDL Cholesterol 32 mg/dL (>40); Potassium 4.7 mmol/L (3.3-5.1); Sodium 138 mmol/L (135-145); Total Protein 6.6 g/dL (6.5-8.0); Triglycerides 153 mg/dL (<150)
== END 2024-10-30 08:10 | disposition home or self-care (01) ==
LOC: HO.WFDLDS 08:09
PROVIDERS: Visit Provider Family Medicine
DX: Z00.00 Encounter for general adult medical examination without abnormal findings (principal); I10 Essential (primary) hypertension; R73.01 Impaired fasting glucose
CPT/HCPCS: 36415; 80053; 80061; 81003; 82043; 82570; 83036; 84443; 85025

== ENCOUNTER 2024-11-02 13:47 | Outpatient (AMB) | payer OTHER, SELFPAY ==
--- NOTE | 2024-11-02 13:53 | A.OFFPC_ITS ---
Vital Signs 11/02/24 13:59 Height 5 ft 3 in Weight 224 lb 8 oz BMI 39.8 BP 142/86 H Blood Pressure Location Rt brachial Position Sitting Respiration 15 Pulse 83 Pulse Source Pulse Oximeter Temp 98.9 F Temp Source Temporal Artery Scan Pulse Oximetry (%) 96 Oxygen Delivery Method Room Air Intake Visit Reasons: f/u anxiety/depression Intake Note: Amanda presents in the office today for anxiety and depression. Patient would like to discuss BP medication. Allergies No Known Allergies Allergy (Verified 11/02/24 13:57) Medication List - Last Reconciled 11/02/24 by Geovany Ackerman MD bupropion HCl 75 mg PO BID cholecalciferol (vitamin D3) 50 mcg PO DAILY psyllium husk (Daily Fiber) 0.52 grams PO BEDTIME Tobacco use date assessed: 11/02/24 Dental Screening Dental Screen Date: 11/02/24 Did you have a dental visit in the last 12 months?: Yes Did you have a dental problem in the last 6 months where you did not have access to dental care?: No Was dental information given to patient?: Patient has dentist HPI f/u anxiety/depression HPI Details 39 y/o female presents to f/u anxiety an d depression as well as hypertension. BP today 142/86, 83p. She is on bupropion 75mg b.i.d. for her mood but she notes she is unsure if it has been helping as much. 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 1. Little interest or pleasure in doing things: more than half the days 2. Feeling down, depressed, or hopeless: more than half the days 3. Trouble falling or staying asleep, or sleeping too much: more than half the days 4. Feeling tired or having little energy: more than half the days 5. Poor appetite or overeating: more than half the days 6. Feeling bad about yourself - or that you are a failure or have let yourself or your family down: not at all 7. Trouble concentrating on things, such as reading the newspaper or watching television: several days 8. Moving or speaking so slowly that other people could have noticed. Or the opposite - being so fidgety or restless that you have been moving around a lot more than usual: not at all 9. Thoughts that you would be better off or of hurting yourself in some way: not at all Total score: 11 Depression Screening Interpretation: Positive Depression Screening Done: Yes 18854 - PHQ-9 Billing: Yes Source: Developed by Drs. Leonard Vazquez, Aaliyah Lopez, Stefan Hernandez and colleagues, with an educational cori from [employer]. Thrive Questionnaire Date Thrive assessed: 09/13/24 I am a: Patient What is your living situation today?: I have a steady place to live Within the past 12 months, did the food you bought not last and you didn't have the money to get more?: Never true Within the past 12 months, did you worry whether your food would run out before you got money to buy more?: Never true Do you have trouble paying for medicines?: No Do you have trouble getting transportation to medical appointments?: No Do you have trouble paying your heating and electricity bill?: No Do you have trouble taking care of your child, family member or friend?: No Do you have trouble with day-to-day activities such as bathing, preparing meals, shopping, managing finances, etc.?: No Are you currently unemployed and looking for a job?: No Are you interested in more education?: No Please select the resources that you would like help with: None Currently or been in a relationship where the following occur: No concerns reported THRIVE Score: 0 SHAYNE-7 AMB Questionnaire SHAYNE-7 Date SHAYNE - 7 assessed: 09/13/24 Feeling nervous, anxious, or on edge: 2 = More than half the days Not being able to stop or control worryin = More than half the days Worrying too much about different things: 2 = More than half the days Trouble relaxin = Several days Being so restless that it is hard to sit still: 0 = Not at all Becoming easily annoyed or irritable: 2 = More than half the days Feeling afraid as if something awful might happen: 2 = More than half the days Total SHAYNE-7 score (0-4 normal; 5-9 mild; 10-14 moderate; 15-21 severe): 11 Source: Developed by Drs. Leonard Vazquez, Aaliyah Lopez, Stefan Hernandez and colleagues, with an educational cori from [employer]. SHAYNE-7 Assessment Billing SHAYNE-7 Assessment Tool: SHAYNE-7 Assessment 27089 Review of Systems Const Denies chills, Denies fatigue, Denies fever(s), Denies headache(s) and Denies weakness ENT Denies dizziness and Denies headache(s) Card Denies chest pain, Denies lightheadedness, Denies dyspnea and Denies other (Palpitations) Resp Denies cough, Denies dyspnea, Denies wheezing and Denies other ( shortness of breath) Musc Denies numbness and Denies tingling Neuro Denies dizziness, Denies headache(s), Denies numbness, Denies tingling, Denies paresthesias and Denies weakness Psych Denies anxiety and Denies depression Endo Denies fatigue Aller/Immun Denies wheezing Physical exam (Primary Care) Vital Signs: Last Vital Signs Temp 98.9 F 11/02/24 13:59 Pulse 83 11/02/24 13:59 Resp 15 11/02/24 13:59 BP 142/86 H 11/02/24 13:59 Pulse Ox 96 11/02/24 13:59 Oxygen Delivery Method Room Air 11/02/24 13:59 BMI result Body Mass Index 39.8 Tobacco/Smoking Status: Tobacco use Status Tobacco use date assessed 11/02/24 11/02/24 14:03 Patient Tobacco Use Status Never used Tobacco 11/02/24 13:59 e-Cigarette/Vaping Use Never Used 11/02/24 13:59 PHQ-9: PHQ-9 Score PHQ-9: Total score 11 11/02/24 14:26 Depression Screening Interpretation: Positive Thrive Assessment: Date of Thrive Assessment Date Thrive assessed 09/13/24 11/02/24 13:54 Currently or been in a relationship where the following occur: No concerns reported Const General: no acute distress and well developed Nutritional Appearance: well nourished Orientation/consciousness: patient oriented x3 HENMT Head: Yes normocephalic and Yes atraumatic Eyes General: appearance normal, both eyes and all related structures Pupils: Equal, round and reactive pupils present EOM: EOMs intact bilaterally Resp Effort & Inspection: normal respiratory effort Auscultation: clear to auscultation bilaterally Cardio Rate: regular rate Rhythm: regular rhythm Heart sounds: S1 normal heart sound present, S2 normal heart sound present, no gallops, no murmurs and no rubs Neuro General: patient oriented x3 and gait normal Cranial nerves: Yes Equal, round and reactive pupils present Psych Affect: normal affect Coding Level of Care Code Est Pt Level 3 (35034) Diagnoses Hypertension I10 Anxiety with depression F41.8 Additional Codes SHAYNE-7 Assessment Billing - SHAYNE-7 Assessment Tool: SHAYNE-7 Assessment 89453 ([id number]) PHQ-9 - 69906 - PHQ-9 Billing: Yes ([id number]) Assessment & Plan Assessment & Plan (1) Hypertension: Code(s): I10 - Essential (primary) hypertension Category: Medical Plan: BP is still high. Goal is < 140/90 Had discussed Metoprolol at last visit Sendind script today (2) Anxiety with depression: Code(s): F41.8 - Other specified anxiety disorders Category: Medical Plan: Ongoing anxiety and depression Patient has been out of work on FMLA and she notes some improvement though gradual. She is taking bupropion but not sure it is helping very much. Family history of bipolar disorder so trying to avoid SSRIs Will try a small dose of aripiprazole at bedtime. Continue bupropion for now as well Continue exercise Will follow-up with patient prior to her expected date of return to work at the end of the month. Medications: New aripiprazole (Abilify) 2 mg PO BEDTIME 30 tabs 1RF 30 days metoprolol succinate ER 25 mg PO DAILY 90 tabs 2RF 90 days
[2024-11-02 13:59] VITALS: BP 142/86; PULSE 83; RESP 15; TEMP 37.2; O2SAT 96; BMI 39.8
--- OUTSIDE RECORDS SUMMARY | 2024-11-02 14:16 | XMS_ITS | Clinical Summary ---
[facility] Organization [facility] Address [address] [place] [address] Care Team Providers Care Lead Athlete Name Role Phone Scar Canela MD Primary Care Provider + [phone] Allergies No known active allergies Medications No [...] age to complete this topic Care Teams Lead Athlete Relationship Specialty Start Date End Date Scar Canela MD [address] [place] [address] PCP - General Internal Medicine 09/02/17
== END 2024-11-02 14:38 | disposition home or self-care (01) ==
LOC: HO.HMCFM 13:48
PROVIDERS: PCP Family Medicine; Visit Provider Family Medicine
DX: I10 Essential (primary) hypertension (principal); F41.8 Other specified anxiety disorders

== ENCOUNTER → 2024-11-02 13:47 | Outpatient (BNVA) | payer OTHER, SELFPAY | PROVIDERS: PCP Family Medicine; Visit Provider Family Medicine | DX: I10 Essential (primary) hypertension (principal); F41.8 Other specified anxiety disorders; F32.A Depression, unspecified | CPT/HCPCS: 96127 ==

== ENCOUNTER 2024-11-23 13:42 | Outpatient (AMB) | payer OTHER, SELFPAY ==
--- NOTE | 2024-11-23 14:05 | A.OFFPC_ITS ---
Vital Signs 11/23/24 14:09 Height 5 ft 3 in Weight 223 lb 2 oz BMI 39.5 BP 126/88 Blood Pressure Location Rt brachial Position Sitting Respiration 14 Pulse 79 Pulse Source Pulse Oximeter Temp 98.4 F Temp Source Oral Pulse Oximetry (%) 98 Oxygen Delivery Method Room Air Intake Visit Reasons: f/u anxiety/depression, hypertension Intake Note: Follow up Microstrategy Architect Required: No Allergies No Known Allergies Allergy (Verified 11/23/24 14:07) Tobacco use date assessed: 11/23/24 Dental Screening Dental Screen Date: 11/02/24 HPI f/u anxiety/depression, hypertension HPI Details 39 y/o female presents to f/u hypertensi on, anxiety/depression. Had continued her bupropion and added Abilify. She discontinued her Abilify. She notes bupropion has been helping with her anxiety. Had started her on metoprolol for hypertension. BP today 126/88, 79p. She is on metorpolol 25mg daily. PHQ-9 7. SHAYNE-7 1 today. 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 Current occupational exposures/hazards: No Cognitive needs: No Hearing needs: No Vision needs: Yes Questionnaire PHQ-9 Over the last 2 weeks, how often have you been bothered by any of the following problems? 1. Little interest or pleasure in doing things: not at all 2. Feeling down, depressed, or hopeless: not at all 3. Trouble falling or staying asleep, or sleeping too much: more than half the days 4. Feeling tired or having little energy: more than half the days 5. Poor appetite or overeating: more than half the days 6. Feeling bad about yourself - or that you are a failure or have let yourself or your family down: not at all 7. Trouble concentrating on things, such as reading the newspaper or watching television: several days 8. Moving or speaking so slowly that other people could have noticed. Or the opposite - being so fidgety or restless that you have been moving around a lot more than usual: not at all 9. Thoughts that you would be better off or of hurting yourself in some way: not at all Total score: 7 Depression Screening Interpretation: Positive Depression Screening Follow-up: In treatment Depression Screening Done: Yes 03517 - PHQ-9 Billing: Yes Source: Developed by Drs. Leonard Vazquez, Aaliyah Lopez, Stefan Hernandez and colleagues, with an educational cori from [employer]. Thrive Questionnaire Date Thrive assessed: 09/13/24 I am a: Patient What is your living situation today?: I have a steady place to live Within the past 12 months, did the food you bought not last and you didn't have the money to get more?: Never true Within the past 12 months, did you worry whether your food would run out before you got money to buy more?: Never true Do you have trouble paying for medicines?: No Do you have trouble getting transportation to medical appointments?: No Do you have trouble paying your heating and electricity bill?: No Do you have trouble taking care of your child, family member or friend?: No Do you have trouble with day-to-day activities such as bathing, preparing meals, shopping, managing finances, etc.?: No Are you currently unemployed and looking for a job?: No Are you interested in more education?: No Please select the resources that you would like help with: None Currently or been in a relationship where the following occur: No concerns reported THRIVE Score: 0 AUDIT C Alcohol Use Questionnaire (AUDIT-C) 1. How often do you have a drink containing alcohol?: Monthly or less 2. How many drinks containing alcohol do you have on a typical day when you are drinking?: 1 or 2 3. How often do you have six or more drinks on one occasion?: Never Total Score: 1 SHAYNE-7 AMB Questionnaire SHAYNE-7 Date SHAYNE - 7 assessed: 11/23/24 Feeling nervous, anxious, or on edge: 1 = Several days Not being able to stop or control worryin = Not at all Worrying too much about different things: 0 = Not at all Trouble relaxin = Not at all Being so restless that it is hard to sit still: 0 = Not at all Becoming easily annoyed or irritable: 0 = Not at all Feeling afraid as if something awful might happen: 0 = Not at all Total SHAYNE-7 score (0-4 normal; 5-9 mild; 10-14 moderate; 15-21 severe): 1 Source: Developed by Drs. Leonard Vazquez, Aaliyah Lopez, Stefan Hernandez and colleagues, with an educational cori from [employer]. SHAYNE-7 Assessment Billing SHAYNE-7 Assessment Tool: SHAYNE-7 Assessment 74607 Review of Systems Const Denies chills, Denies fatigue, Denies fever(s), Denies headache(s) and Denies weakness ENT Denies dizziness and Denies headache(s) Card Denies dyspnea Resp Denies cough, Denies dyspnea, Denies wheezing and Denies other (shortness of breath) Musc Denies numbness and Denies tingling Neuro Denies dizziness, Denies headache(s), Denies numbness, Denies tingling and Denies weakness Psych Reports depression Endo Denies fatigue Aller/Immun Denies wheezing Physical exam (Primary Care) Vital Signs: Last Vital Signs Temp 98.4 F 11/23/24 14:09 Pulse 79 11/23/24 14:09 Resp 14 11/23/24 14:09 BP 126/88 11/23/24 14:09 Pulse Ox 98 11/23/24 14:09 Oxygen Delivery Method Room Air 11/23/24 14:09 BMI result Body Mass Index 39.5 Tobacco/Smoking Status: Tobacco use Status Tobacco use date assessed 11/23/24 11/23/24 14:14 Patient Tobacco Use Status Never used Tobacco 11/23/24 14:06 e-Cigarette/Vaping Use Never Used 11/23/24 14:06 PHQ-9: PHQ-9 Score PHQ-9: Total score 7 11/23/24 14:16 Depression Screening Interpretation: Positive Depression Screening Follow-up: In treatment Thrive Assessment: Date of Thrive Assessment Date Thrive assessed 09/13/24 11/23/24 14:06 Currently or been in a relationship where the following occur: No concerns reported Const General: well developed; No acute distress Nutritional Appearance: well nourished Orientation/consciousness: patient oriented x3 HENMT Head: Yes normocephalic and Yes atraumatic Eyes General: appearance normal, both eyes and all related structures Pupils: Equal, round and reactive pupils present EOM: EOMs intact bilaterally Resp Effort & Inspection: normal respiratory effort Neuro General: patient oriented x3 and gait normal Cranial nerves: Yes Equal, round and reactive pupils present Psych Affect: normal affect Coding Level of Care Code Est Pt Level 3 (72253) Diagnoses Anxiety with depression F41.8 Hypertension I10 Additional Codes SHAYNE-7 Assessment Billing - SHAYNE-7 Assessment Tool: SHAYNE-7 Assessment 14466 ([id number]) PHQ-9 - 15958 - PHQ-9 Billing: Yes ([id number]) Assessment & Plan Assessment & Plan (1) Anxiety with depression: Code(s): F41.8 - Other specified anxiety disorders Category: Medical Plan: Anxiety improved on metoprolol and bupropion She did not tolerate Abilify this is discontinued She will continue current medication regimen She has a therapist She has been out of work and this has improved her symptoms as well. She notes that much of her anxiety he has stems from her work environment. 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 She will get the appropriate paperwork from employer. (2) Hypertension: Code(s): I10 - Essential (primary) hypertension Category: Medical Plan: Blood pressure now well controlled on metoprolol Continue current medication
[2024-11-23 14:09] VITALS: BP 126/88; PULSE 79; RESP 14; TEMP 36.9; O2SAT 98; BMI 39.5
--- OUTSIDE RECORDS SUMMARY | 2024-11-23 14:54 | XMS_ITS | Clinical Summary ---
Author Organization [facility] Address [address] [place] [address] Care Team Providers Care Chemical Packager Name Role Phone Scar Canela MD Primary Care Provider + [phone] Allergies No known active allergies Medications No [...] age to complete this topic Care Teams Chemical Packager Relationship Specialty Start Date End Date Scar Canela MD [address] [place] [address] PCP - General Internal Medicine 09/02/17
== END 2024-11-23 14:27 | disposition home or self-care (01) ==
LOC: HO.HMCFM 13:42
PROVIDERS: PCP Family Medicine; Visit Provider Family Medicine
DX: F41.8 Other specified anxiety disorders (principal); I10 Essential (primary) hypertension

== ENCOUNTER → 2024-11-23 13:42 | Outpatient (BNVA) | payer OTHER, SELFPAY | PROVIDERS: PCP Family Medicine; Visit Provider Family Medicine | DX: I10 Essential (primary) hypertension (principal); F41.8 Other specified anxiety disorders | CPT/HCPCS: 96127 ==

== ENCOUNTER 2024-11-30 08:00 | Outpatient (AMB) | payer OTHER, SELFPAY ==
--- OUTSIDE RECORDS SUMMARY | 2024-11-30 08:03 | XMS_ITS | Clinical Summary ---
[facility] Organization [facility] Address [address] [place] [address] Care Team Providers Care Repair Specialist Name Role Phone Scar Canela MD Primary Care Provider + [phone] Allergies No known active allergies Medications No [...] age to complete this topic Care Teams Repair Specialist Relationship Specialty Start Date End Date Scar Canela MD [address] [place] [address] PCP - General Internal Medicine 09/02/17
--- OUTSIDE RECORDS SUMMARY | 2024-11-30 08:03 | XMS_ITS | Clinical Summary ---
Author Organization [facility] Address [address] [place] [address] Care Team Providers Care Section Leader Name Role Phone Meghna De Leon RN Unavailable Unavailable Social History Tobacco Use Types Packs/Day Years Used Date Smoking Tobacco: Never Assessed Comments Unknown Sex and Gender Information Value Date Recorded Sex Assigned at Not on file Legal Sex Female 12:08 PM [facility] Gender Identity Not on file Sexual Orientation Not on file Plan of Treatment Upcoming Encounters Date Type Department Care Team (Late st Contact Info) Description 12/21/2024 10:00 AM EDT Health Coaching Visit [facility] [employer]ium Arc Welder [address] [address] Meghna De Leon RN Health Maintenance Due Date Last Done Comments Hepatitis C Screening 1986 PHQ-9 Depression Screen 1998 Annual Preventive Exam 2004 Complete Annual HRA 2004 SHAYNE-7 Anxiety Screen 2004 DTaP,Tdap,and Td Vaccines (1 - Tdap) 2005 Cervical Cancer Screening (Pap/HPV) 07/11/2007 COVID-19 Vaccine ( season) 2024 Influenza Vaccine (#1) 2024 RSV Vaccine (SCDM) (1 - 1-dose 75+ series) 2061 Care Teams Section Leader Relationship Specialty Start Date End Date Meghna De Leon RN Health Helium Arc Welder Registered Nurse 11/26/24
--- NOTE | 2024-11-30 08:05 | A.OFFPC_ITS ---
Vital Signs 11/30/24 08:07 Height 5 ft 3 in Weight 225 lb BMI 39.9 BP 138/78 Blood Pressure Location Lt brachial Position Sitting Pulse 73 Pulse Source Auscultation Pulse Oximetry (%) 99 Oxygen Delivery Method Room Air Intake Visit Reasons: Physical / Dr. Hawley Pt. Allergies No Known Allergies Allergy (Verified 11/30/24 08:07) Medication List - Last Reconciled 11/30/24 by PINO GuzmanP- bupropion HCl 75 mg PO DAILY 30 days cholecalciferol (vitamin D3) 50 mcg PO DAILY metoprolol succinate ER 25 mg PO DAILY 90 days psyllium husk (Daily Fiber) 0.52 grams PO BEDTIME Tobacco use date assessed: 11/23/24 Dental Screening Dental Screen Date: 11/02/24 Did you have a dental visit in the last 12 months?: Yes Did you have a dental problem in the last 6 months where you did not have access to dental care?: No Was dental information given to patient?: Patient has dentist HPI HPI Comments History of Present Illness Details 39 y/o F with HTN, SHAYNE, MDD, obesity Surgery: No changes Fhx: Maternal aunt of glioblioblastoma; No other updates. Health Maintenance Pap active w/ [employer], 1 mo ago. Tdap declined Flu declined Optho wears glasses, last exam about 2 years ago. NO changes. History of Present Illness The patient is a 39-year-old female presenting with a complete physical examination and management of existing conditions. Vitamin D deficiency: - History of deficiency. - On Vitamin D supplementation. Anxiety: - History of anxiety with previous FMLA leave. - Discussing workplace accommodations. - On buproprion Essential Hypertension: - History of Hypertension. - Managed with Metoprolol. - Blood pressure at clinic is 138/78 mmH g. Impaired fasting glucose: - Fasting glucose consistently at 104 mg /dL. Nerve-related symptoms L knee Skin: Behind L knee numb and cold inside feels normal outside. She wonders if this is nerve damage. STarted in may No other sx. Past Surgical History - No surgeries in the last year. Family History - Mother's twin had glioblastoma approxi mately five years ago. 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 - No smoking or vaping. - Active in music, plays in a band. - Mention of workplace LED lighting caus ing agitation. - Interested in workplace adjustment for anxiety. Health Maintenance - Declined flu and tetanus vaccinations during this visit. - Last Pap smear was one month ago with normal results. - Dental care and eye examinations were updated; last eye exam was two years ago. - HDL and triglycerides checked in labs? HDL was low and triglycerides slightly high. Review of Systems - General: Denies feeling sick. - Cardiovascular: Denies monitoring bloo d pressure at home. - Neurological: Reports numbness and col d sensation in a localized back area. - Dermatological: Denies skin changes or worries. - Endocrine: Impaired fasting glucose le vels identified previously. - Mental Health: Reports anxiety managem ent discussions. Physical Exam General: Well developed, well nourished, in no acute distress. Appears stated age. Head: Normocephalic, atraumatic. Eyes: Pupils are equal, round and reactive to light and accommodation. Co njunctivae are clear. Scleras nonicteric bilat. Vision grossly normal. Patient wears glasses. Ears: TMs clear AU, EACS WNL Nose: Patent, without discharge. Neck: No carotid bruit bilat. Supple, no adenopathy or thyromegaly. Breast: Edu on SBE Lungs: Clear to auscultation bilaterally. No rales, rhonchi or wheeze noted. Good air flow in all menjivar. Heart: Regular rate and rhythm. No murmurs, click, rubs or gallops are noted. Abdomen: Bowel sounds present in all quadrants. The abdomen is soft, nontender, with no masses or organomegaly noted. No hernias are noted. : Deferred. Reviewed recommendations for routine [employer]. Last Pap smear was one month ago and was normal. Pulses: Peripheral pulses are equal and palpable bilaterally. Strong pulses noted in ankles. Extremities: No clubbing, cyanosis nor edema is noted. Neurologic: Gait and station normal. Cranial Nerves 2-12 intact. Motor strength grossly symmetrical and intact. No sensory loss. Balance normal. Skin: No rashes, ulcers, or lesions noted. Turgor is good. Skin color is good. Hair and nails are without abnormalities. Psych: Normal eye contact, affect and mood appropriate, and normal interactions. Patient is alert and appropriate to context. History of anxiety and depression, currently managed with medication and seeking work accommodations. Results labs 10/30/24 IFG 104, HDL 32, TG 153, otherwise normal Discussion Notes During our discussion, I addressed the patient's management of anxiety and hypertension. The patient has shown interest in possible workplace modifications to better accommodate her anxiety, specifically regarding LED lighting. We reviewed her fasting glucose results which continue to suggest impaired glucose tolerance. I provided reassurance regarding her nerve-related symptoms, noting that they are likely benign due to the lack of associated weakness or pain, but offered further testing if symptoms change or worsen. As for health maintenance, the patient declined vaccines today but confirmed recent routine screenings, including a normal Pap smear. Patient was given time to ask questions. All questions were answered to their satisfaction. Assessment and Plan 1. Vitamin D deficiency - Continue supplementation. 2. Anxiety - Consider workplace adjustments. - Ongoing management with mental health provider. - Cont meds 3. Essential Hypertension - Maintain current medication. - Suggest home monitoring. 4. Impaired fasting glucose - Lifestyle modification recommended. 5. Nerve-related symptoms - Symptoms likely benign. - Monitor for changes. Patient Instructions - Take Vitamin D every day as prescribed . - Consider home blood pressure checks if possible. - Continue current anxiety management an d consult with Dr. Ackerman. - Follow a healthy diet to help manage f asting glucose. - Watch for any changes in nerve symptom s. - FU with PCP as scheduled, allan agee eeded Consent Patient was informed and verbally consented to the use of an ambient scribe for clinic note documentation during this visit. 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 [employer] Current occupational exposures/hazards: No Cognitive needs: No Hearing needs: No Vision needs: Yes Questionnaire Thrive Questionnaire Date Thrive assessed: 09/13/24 I am a: Patient What is your living situation today?: I have a steady place to live Within the past 12 months, did the food you bought not last and you didn't have the money to get more?: Never true Within the past 12 months, did you worry whether your food would run out before you got money to buy more?: Never true Do you have trouble paying for medicines?: No Do you have trouble getting transportation to medical appointments?: No Do you have trouble paying your heating and electricity bill?: No Do you have trouble taking care of your child, family member or friend?: No Do you have trouble with day-to-day activities such as bathing, preparing meals, shopping, managing finances, etc.?: No Are you currently unemployed and looking for a job?: No Are you interested in more education?: No Please select the resources that you would like help with: None Currently or been in a relationship where the following occur: No concerns reported THRIVE Score: 0 SHAYNE-7 AMB Questionnaire SHAYNE-7 Date SHAYNE - 7 assessed: 11/23/24 Source: Developed by Drs. Leonard Vazquez, Aaliyah Lopez, Stefan Hernandez and colleagues, with an educational cori from [employer]. Physical exam (Primary Care) BMI Assessment/Plan discussion: High BMI High, discussed plan: lifestyle Tobacco/Smoking Status: Tobacco use Status Tobacco use date assessed 11/23/24 11/23/24 14:14 Patient Tobacco Use Status Never used Tobacco 11/23/24 14:06 e-Cigarette/Vaping Use Never Used 11/23/24 14:06 Thrive Assessment: Date of Thrive Assessment Date Thrive assessed 09/13/24 11/23/24 14:06 Currently or been in a relationship where the following occur: No concerns reported Coding Level of Care Code Est Pt Prev Care 18-39y(44861) Diagnoses Adult general medical exam Z00.00 Laboratory exam ordered as part of routine general medical examination Z00.00 Influenza vaccination declined Z28.21 Tetanus, diphtheria, and acellular pertussis (Tdap) vaccination declined Z28.21 History of Papanicolaou smear of cervix Z92.89 Generalized anxiety disorder F41.1 Depression F32.A Low HDL (under 40) E78.6 Hypertension I10 Elevated fasting glucose R73.01 Obesity (BMI 30-39.9) E66.9 Assessment & Plan Assessment & Plan (1) Adult general medical exam: Onset Date: ~11/30/24 Code(s): Z00.00 - Encounter for general adult medical examination without abnormal findings Category: Medical (2) Laboratory exam ordered as part of routine general medical examination: Code(s): Z00.00 - Encounter for general adult medical examination without abnormal findings Category: Medical (3) Influenza vaccination declined: Code(s): Z28.21 - Immunization not carried out because of patient refusal Category: Medical (4) Tetanus, diphtheria, and acellular pertussis (Tdap) vaccination declined: Code(s): Z28.21 - Immunization not carried out because of patient refusal Category: Medical (5) History of Papanicolaou smear of cervix: Onset Date: ~09/2024 Code(s): Z92.89 - Personal history of other medical treatment Category: Medical (6) Generalized anxiety disorder: Code(s): F41.1 - Generalized anxiety disorder Category: Medical (7) Depression: Code(s): F32.A - Depression, unspecified Category: Medical (8) Low HDL (under 40): Code(s): E78.6 - Lipoprotein deficiency Category: Medical (9) Hypertension: Code(s): I10 - Essential (primary) hypertension Category: Medical (10) Elevated fasting glucose: Code(s): R73.01 - Impaired fasting glucose Category: Medical (11) Obesity (BMI 30-39.9): Code(s): E66.9 - Obesity, unspecified Category: Medical Plan . Medications: Changed From bupropion HCl 75 mg PO BID 30 days 60 tabs 3RF To bupropion HCl 75 mg PO DAILY 30 tabs 3RF 30 days Patient Instructions: Health screenings for women You should visit your health care provider from time to time, even if you are healthy. The purpose of these visits is to: Screen for medical issues Assess your risk for future medical problems Encourage a healthy lifestyle Update vaccinations and other preventive care services Help you get to know your provider in case of an illness Information Even if you feel fine, you should still see your provider for regular checkups. These visits can help you avoid problems in the future. For example, the only way to find out if you have high blood pressure is to have it checked regularly. High blood sugar and high cholesterol levels also may not have any symptoms in the early stages. A simple blood test can check for these conditions. There are specific times when you should see your provider or receive specific health screenings. The [place] Preventive Services Task Force publishes a list of recommended screenings. Below are screening guidelines for women ages 18 to 39. BLOOD PRESSURE SCREENING Your blood pressure should be checked at least once every 3 to 5 years if: Your blood pressure is in the normal range (top number less than 120 mm Hg and bottom number less than 80 mm Hg) You don't have risk factors for high blood pressure Ask your provider if you need your blood pressure checked more often if: The top number is 120 to 129 mm Hg or the bottom number is 70 to 79 mm Hg You have diabetes, heart disease, kidney problems, are overweight, or have certain other health conditions You have a first-degree relative with high blood pressure You are Black You had high blood pressure during a If the top number is 130 mm Hg or greater or the bottom number is 80 mm Hg or greater, this is considered stage 1 hypertension. Schedule an appointment with your provider to learn how you can reduce your blood pressure. Watch for blood pressure screenings in your area. Ask your provider if you can stop in to have your blood pressure checked. BREAST CANCER SCREENING Experts do not agree about the benefits of breast self-exams in finding breast cancer or saving lives. Talk to your provider about what is best for you. A screening mammogram is not recommended for most women under age 40. Your provider may discuss and recommend mammograms, MRI scans, or ultrasounds if you have an increased risk for breast cancer, such as: A mother or sister who had breast cancer at a young age (most often starting screening earlier than the age the close relative was diagnosed) You carry a high-risk genetic marker CERVICAL CANCER SCREENING Cervical cancer screening should start at age 21 years unless your provider a dvises otherwise. After the first test: Women ages 21 through 29 should have a Pap test every 3 years. Exoprts do not agree on whether HPV testing is recommended for this age group. Women ages 30 through 65 should be screened with either a Pap test every 3 years or the HPV test every 5 years or both tests every 5 years (called cotesting ). Women who have been treated for precancer (cervical dysplasia) should continue to have Pap tests for 20 years after treatment or until age 65, whichever is longer. If you have had your uterus and cervix removed (total hysterectomy), and you have not been diagnosed with cervical cancer or precancer (high grade cervical neoplasia), you do not need cervical cancer screening. CHOLESTEROL SCREENING Cholesterol screening should begin at: Age 45 for women with no known risk factors for coronary heart disease Age 20 for women with known risk factors for coronary heart disease Repeat cholesterol screening should take place: Every 5 years for women with normal cholesterol levels More often if changes occur in lifestyle (including weight gain and diet) More often if you have diabetes, heart disease, kidney problems, or certain other conditions DIABETES SCREENING You should be screened for diabetes starting at age 35 and then repeated every 3 years if you have no risk factors for diabetes. Screening may need to start earlier and be repeated more often if you have other risk factors for diabetes, such as: You have a first degree relative with diabetes. You are overweight or have obesity. You have high blood pressure, prediabetes, or a history of heart disease. Screening for diabetes should be done if you are planning to become and you are overweight and have other risk factors such as high blood pressure. DENTAL EXAM Go to the dentist once or twice every year for an exam and cleaning. Your dentist will evaluate if you need more frequent visits. EYE EXAM Have an eye exam every 5 to 10 years before age 40. If you have vision problems, have an eye exam every 2 years or more often if recommended by your provider. You should have an eye exam that includes an examination of your retina (back of your eye) at least every year if you have diabetes. IMMUNIZATIONS Commonly needed vaccines include: Flu shot: get one every year. COVID-19 vaccine: ask your provider what is best for you. Tetanus-diphtheria and acellular pertussis (Tdap) vaccine: have one at or after age 19 as one of your tetanus-diphtheria vaccines if you did not receive it as an adolescent. Tetanus-diphtheria: have a booster (or Tdap) every 10 years. Varicella vaccine: receive 2 doses if you never had chickenpox or the varicella vaccine. Hepatitis B vaccine: receive 2, 3, or 4 doses, depending on your exact circumstances. Measles, mumps, and rubella (MMR) vaccine: receive 1 to 2 doses if you are not already immune to MMR. Your provider can tell you if you are immune. Ask your provider about the human papillomavirus (HPV) vaccine if: You have not received the HPV vaccine in the past You have not completed the full vaccine series (you should catch up on this shot) Ask your provider if you should receive other immunizations if you have certain health problems that increase your risk for some diseases such as pneumonia. INFECTIOUS DISEASE SCREENING Women who are sexually active should be screened for chlamydia and gonorrhea up until age 25. Women 25 years and older should be screened for chlamydia and gonorrhea if at high risk. Screening for hepatitis C: All adults ages 18 to 79 should get a one-time test for hepatitis C. people should be screened at every . Screening for human immunodeficiency virus (HIV): All people ages 15 to 65 should get a one-time test for HIV. Depending on your lifestyle and medical history, you may also need to be screened for infections such as syphilis and HIV, as well as other infections. PHYSICAL EXAM All adults should visit their provider from time to time, even if they are heal thy. The purpose of these visits is to: Screen for disease Assess your risk of future medical problems Encourage a healthy lifestyle Update your vaccinations and other preventive care services Maintain a relationship with a provider in case of an illness Your height, weight, and BMI should be checked at every exam. During your exam, your provider may ask you about: Depression and anxiety Diet and exercise Alcohol and tobacco use Safety issues, such as using seat belts, smoke detectors, and intimate partner violence Your medicines and risk for interactions SKIN SELF-EXAM Your provider may check your skin for signs of skin cancer, especially if you're at high risk, such as if you: Have had skin cancer before Have close relatives with skin cancer Have a weakened immune system OTHER SCREENING Talk with your provider about colon cancer screening if you have a strong family history of colon cancer or polyps, or if you have had inflammatory bowel disease or polyps yourself. Routine bone density screening of women under 40 is not recommended.
[2024-11-30 08:07] VITALS: BP 138/78; PULSE 73; O2SAT 99; BMI 39.9
== END 2024-11-30 08:26 | disposition home or self-care (01) ==
LOC: HO.HMCFM 08:01
PROVIDERS: PCP Family Medicine; Visit Provider Nurse Practitioner Family
DX: Z00.00 Encounter for general adult medical examination without abnormal findings (principal); F41.1 Generalized anxiety disorder; E66.9 Obesity, unspecified; Z68.39 Body mass index [BMI] 39.0-39.9, adult; Z28.21 Immunization not carried out because of patient refusal; Z92.89 Personal history of other medical treatment; F32.A Depression, unspecified; E78.6 Lipoprotein deficiency; I10 Essential (primary) hypertension; R73.01 Impaired fasting glucose

== ENCOUNTER 2024-12-18 11:29 | Outpatient (AMB) | payer OTHER, SELFPAY ==
--- NOTE | 2024-12-18 11:45 | A.OFFPC_ITS ---
Vital Signs 12/18/24 11:52 Height 5 ft 3 in Weight 227 lb 4 oz BMI 40.3 BP 130/80 Blood Pressure Location Lt brachial Position Sitting Respiration 18 Pulse 90 Pulse Source Pulse Oximeter Temp 98.2 F Temp Source Oral Pulse Oximetry (%) 97 Oxygen Delivery Method Room Air Intake Visit Reasons: paperwork Intake Note: patient is scheduled to complete accommodation paperwork Manager Business Continuity Required: No Allergies No Known Allergies Allergy (Verified 12/18/24 11:46) Tobacco use date assessed: 11/23/24 Dental Screening Dental Screen Date: 11/02/24 HPI paperwork HPI Details 39 y/o female presents to f/u anxiety/de pression, paperwork. Pt describes new lighting at work seems to increase her anxiety. She has mentioned much of her anxiety stems from her workplace. 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 [employer] Current occupational exposures/hazards: No Cognitive needs: No Hearing needs: No Vision needs: Yes Questionnaire Thrive Questionnaire Date Thrive assessed: 09/13/24 I am a: Patient What is your living situation today?: I have a steady place to live Within the past 12 months, did the food you bought not last and you didn't have the money to get more?: Never true Within the past 12 months, did you worry whether your food would run out before you got money to buy more?: Never true Do you have trouble paying for medicines?: No Do you have trouble getting transportation to medical appointments?: No Do you have trouble paying your heating and electricity bill?: No Do you have trouble taking care of your child, family member or friend?: No Do you have trouble with day-to-day activities such as bathing, preparing meals, shopping, managing finances, etc.?: No Are you currently unemployed and looking for a job?: No Are you interested in more education?: No Please select the resources that you would like help with: None Currently or been in a relationship where the following occur: No concerns reported THRIVE Score: 0 SHAYNE-7 AMB Questionnaire SHAYNE-7 Date SHAYNE - 7 assessed: 11/23/24 Source: Developed by Drs. Leonard Vazquez, Aaliyah Lopez, Stefan Hernandez and colleagues, with an educational cori from [employer]. Review of Systems Const Denies chills, Denies fatigue, Denies fever(s), Denies headache(s) and Denies weakness ENT Denies dizziness and Denies headache(s) Card Denies dyspnea Resp Denies cough, Denies dyspnea, Denies wheezing and Denies other (shortness of breath) Musc Denies numbness and Denies tingling Neuro Denies dizziness, Denies headache(s), Denies numbness, Denies tingling and Den ies weakness Psych Reports anxiety and Reports depression Endo Denies fatigue Aller/Immun Denies wheezing Physical exam (Primary Care) Vital Signs: Last Vital Signs Temp 98.2 F 12/18/24 11:52 Pulse 90 12/18/24 11:52 Resp 18 12/18/24 11:52 BP 130/80 12/18/24 11:52 Pulse Ox 97 12/18/24 11:52 Oxygen Delivery Method Room Air 12/18/24 11:52 BMI result Body Mass Index 40.3 Tobacco/Smoking Status: Tobacco use Status Tobacco use date assessed 11/23/24 12/18/24 11:48 Patient Tobacco Use Status Never used Tobacco 12/18/24 11:48 e-Cigarette/Vaping Use Never Used 12/18/24 11:48 Thrive Assessment: Date of Thrive Assessment Date Thrive assessed 09/13/24 12/18/24 11:48 Currently or been in a relationship where the following occur: No concerns reported Const General: well developed; No acute distress Nutritional Appearance: well nourished Orientation/consciousness: patient oriented x3 HENMT Head: Yes normocephalic and Yes atraumatic Eyes General: appearance normal, both eyes and all related structures Pupils: Equal, round and reactive pupils present EOM: EOMs intact bilaterally Resp Effort & Inspection: normal respiratory effort Neuro General: patient oriented x3 and gait normal Cranial nerves: Yes Equal, round and reactive pupils present Psych Affect: normal affect Coding Level of Care Code Est Pt Level 3 (10873) Diagnoses Anxiety with depression F41.8 Assessment & Plan Assessment & Plan (1) Anxiety with depression: Code(s): F41.8 - Other specified anxiety disorders Category: Medical Plan: Ongoing and significant anxiety depression related to work environment. Had get patient out of work for about 3 months. Over the last 3 weeks she has been working from home which has mitigated most of her symptoms. 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 Will re-evaluate by the end of the year to determine if this accommodation should be permanent. Significant symptoms including difficulty with emotional regulation, organization and focus, communication and cooperation with employer is and coworkers. Physical symptoms such as palpitations, hypertension and migraine headaches at work. Headaches seem to be exacerbated by lightening as well. These have all been greatly mitigated while working from home. Follow-up in 3 6 months Paperwork filled out today and will be scanned.
[2024-12-18 11:52] VITALS: BP 130/80; PULSE 90; RESP 18; TEMP 36.8; O2SAT 97; BMI 40.3
--- OUTSIDE RECORDS SUMMARY | 2024-12-18 14:45 | XMS_ITS | Clinical Summary ---
Author Organization [facility] Address [address] [place] [address] Care Team Providers Care Cigar Head Puncher Name Role Phone Scar Canela MD Primary Care Provider + [phone] Allergies No known active allergies Medications No [...] age to complete this topic Care Teams Cigar Head Puncher Relationship Specialty Start Date End Date Scar Canela MD [address] [place] [address] PCP - General Internal Medicine 09/02/17
--- OUTSIDE RECORDS SUMMARY | 2024-12-18 14:45 | XMS_ITS | Clinical Summary ---
Author Organization [facility] Address [address] [place] [address] Care Team Providers Care Director Nursing Service Name Role Phone Meghna De Leon RN Unavailable Unavailable Social History Tobacco Use Types Packs/Day Years Used Date Smoking Tobacco: Never Assessed Comments Unknown Sex and Gender Information Value Date Recorded Sex Assigned at Not on file Legal Sex Female 12:08 PM [facility] Gender Identity Not on file Sexual Orientation Not on file Plan of Treatment Upcoming Encounters Date Type Department Care Team (Late st Contact Info) Description 02/05/2025 9:00 AM EST Health Coaching Visit [facility] [employer] [address] [phone] Meghna De Leon RN Health Maintenance Due Date Last Done Comments Hepatitis C Screening 1986 MMR Vaccines (1 of 1 - Standard series) 07/11/1987 PHQ-9 Depression Screen 1998 Varicella Vaccines (1 of 2 - 13+ 2-dose series) 1999 Annual Preventive Exam 2004 Complete Annual HRA 2004 SHAYNE-7 Anxiety Screen 2004 DTaP,Tdap,and Td Vaccines (1 - Tdap) 2005 Hepatitis B Vaccines (1 of 3 - 19+ 3-dose series) 06/28 Cervical Cancer Screening (Pap/HPV) 07/11/2007 COVID-19 Vaccine ( - season) 2024 Influenza Vaccine (#1) 2024 RSV Vaccine (SCDM) (1 - 1-dose 75+ series) 2061 Care Teams Director Nursing Service Relationship Specialty Start Date End Date Meghna De Leon RN Health Electric [employer]er Registered Nurse 11/26/24
== END 2024-12-18 12:29 | disposition home or self-care (01) ==
LOC: HO.HMCFM 11:30
PROVIDERS: PCP Family Medicine; Visit Provider Family Medicine
DX: F41.8 Other specified anxiety disorders (principal)